=== PATIENT | male | born 2005 | race Caucasian/White ===

== ENCOUNTER 2025-02-04 09:17 | Emergency (ER) | payer BC | END 2025-02-04 10:32 | disposition home or self-care (01) | LOC: FB.ED 09:17 | DX: J10.1 Influenza due to other identified influenza virus with other respiratory manifestations (principal); Z88.0 Allergy status to penicillin; Z79.899 Other long term (current) drug therapy | CPT/HCPCS: 87428-QW; 87651; 99283; 99284 ==